=== PATIENT | male | born 1940 | race African-American/Black ===

== ENCOUNTER 2019-04-06 11:34 | Emergency (ER) | payer MEDICARE ==
[~2019-04-06] VITALS: Ht 180.3 cm; Wt 72.6 kg
[2019-04-06 12:06] VITALS: BP 141/77
== END 2019-04-06 12:45 | disposition left against medical advice (07) ==
LOC: ER 11:56
DX: R10.30 Lower abdominal pain, unspecified (principal); R19.7 Diarrhea, unspecified; Z53.21 Procedure and treatment not carried out due to patient leaving prior to being seen by health care provider